=== PATIENT | male | born 2000 | race Two or more races ===

== ENCOUNTER 2025-01-18 12:31 | Emergency (ER) | payer OTHER ==
[~2025-01-18] VITALS: Ht 177.8 cm; Wt 90.9 kg
[2025-01-18 12:39] VITALS: TEMP 99
[2025-01-18 13:07] LABS: PLATELET COUNT (AUTO) 216 K/uL (150-450); RED BLOOD CELL COUNT(AUTO) 4.99 MIL/uL (4.50-5.90); RED CELL DISTRIBUTION WIDTH 12.9 % (11.5-14.5); WHITE BLOOD COUNT (AUTO) 8.1 K/uL (4.5-11.0)
[2025-01-18 13:14] LABS: COVID AG,FIA SOURCE NASAL SWAB
[2025-01-18 13:25] LABS: CALCIUM, TOTAL 8.5 mg/dL (8.8-10.5); CREATININE 1.01 mg/dL (0.60-1.30); GLOMERULAR FILTR. RATE CALC > 60 mL/min (>60); GLUCOSE,RANDOM 108 mg/dL (70-110); SODIUM SERUM 141 mmol/L (136-145); UREA NITROGEN, BLOOD 10 mg/dL (7-18)
[2025-01-18 13:28] LABS: ALCOHOL, BLOOD (SERUM) 210.0 mg/dL (0-10)
[2025-01-18 13:31] LABS: ASPARTATE AMINOTRANSFERASE 29.0 U/L (15-37); TOTAL PROTEIN, SERUM 7.2 g/dL (6.4-8.2)
[2025-01-18 14:14] LABS: SARS-COV2 (COVID) ANTIGEN,FIA Negative (Negative)
[2025-01-18 20:52] VITALS: BP 115/66; PULSE 87; RESP 18; O2SAT 96
== END 2025-01-18 20:54 | disposition home or self-care (01) ==
LOC: EMS 12:31
DX: F10.10 Alcohol abuse, uncomplicated (principal); R45.1 Restlessness and agitation; F17.210 Nicotine dependence, cigarettes, uncomplicated; F12.90 Cannabis use, unspecified, uncomplicated; Z20.822 Contact with and (suspected) exposure to COVID-19; Y92.481 Parking lot as the place of occurrence of the external cause; Y90.7 Blood alcohol level of 200-239 mg/100 ml
CPT/HCPCS: 99283; 87426; 80048; 80076; 85025; 36415; G0480